=== PATIENT | male | born 1955 | race Caucasian/White ===

== ENCOUNTER 2016-11-17 11:03 | Emergency (ER) | payer SELFPAY ==
[2016-11-17] MEDS ORDERED: IPRATROPIUM/ALBUTEROL 3 ML VIAL NEB ONE ×2 (11:14→11:15)
[2016-11-17 11:28] VITALS: BP 168/87; TEMP 98.1; O2SAT 97
[2016-11-17] MEDS ORDERED: predniSONE 20 MG TAB PO ONE (11:49)
--- NOTE | 2016-11-17 11:52 | ED.PDOC ---
History of Present Illness - General Chief Complaint: Respiratory Problem Stated Complaint: shortness of breath Time Seen by Provider: 11/17/16 11:14 Source: patient Exam Limitations: no limitations - History of Present Illness Initial Comments: The patient is a 51-year-old male presenting to the emergency room secondary to a feeling of shortness of breath that has been progressive over the last couple of months. He does smoke and has smoked for a very long time. No chest pain today she was. He does have a [id number] cough. He has had several rounds of sinusitis not too long ago. He does not take any daily medications. No syncope or near syncope. The patient does have a wound to his right lower extremity from recent injury. He has some mild associated edema around it. Timing/Duration: constant, getting worse Severity: moderate Improving Factors: nothing Worsening Factors: nothing Associated Symptoms: cough, malaise, shortness of breath Allergies/Adverse Reactions: Allergies NO KNOWN ALLERGY Allergy (Verified 11/17/16 11:28) Home Medications: Ambulatory Orders Amoxicillin & Pot Clavulanate [Augmentin Tab] 875 mg PO BID #14 tab 11/17/16 Ipratropium/Albuterol Inhaler [Combivent Respimat 20-100 Mcg/Act] 2 puff INH RTQID #1 inh 11/17/16 predniSONE [Prednisone] 20 mg PO DAILY #5 tab 11/17/16 Review of Systems - Review of Systems Constitutional: States: malaise EENTM: States: no symptoms reported Respiratory: States: cough, short of breath Cardiology: States: no symptoms reported Gastrointestinal/Abdominal: States: no symptoms reported Genitourinary: States: no symptoms reported Musculoskeletal: States: no symptoms reported Skin: States: no symptoms reported Neurological: States: no symptoms reported Endocrine: States: no symptoms reported Hematologic/Lymphatic: States: no symptoms reported All other Systems: No Change from Baseline Past Medical History (General) - Patient Medical History Hx Congestive Heart Failure: No Hx Diabetes: No - Vaccination History Hx Influenza Vaccination: No Hx Pneumococcal Vaccination: No - Social History Hx Tobacco Use: Yes Family Medical History - Family History Father Family History: Unknown Living Status: Unknown Physical Exam - Physical Exam General Appearance: Alert, Comfortable, No apparent distress Eye Exam: bilateral normal Ears, Nose, Throat: hearing grossly normal Neck: full range of motion, supple Respiratory: chest non-tender, decreased breath sounds, accessory muscle use - mild, wheezing - mild scattered Cardiovascular/Chest: normal peripheral pulses, regular rate, rhythm, other - ild edema in the right lower extremity due to recent injury Peripheral Pulses: radial,right: 2+, radial,left: 2+, dorsalis pedis,right: 2+, dorsalis pedis,left: 2+ Gastrointestinal/Abdominal: soft Rectal Exam: deferred Back Exam: no CVA tenderness, no vertebral tenderness Extremity: normal range of motion, no calf tenderness, normal capillary refill Neurologic: vp site II-XII nml as tested, alert, normal mood/affect, oriented x 3 Skin Exam: normal color - with the exception as above.three-quarter inch laceration to therightinner midcalf. Comments: Vital Signs - 24 hr 11/17/16 11/17/16 11/17/16 11:20 11:23 11:25 Temperature 98.1 F Pulse Rate 92 H 96 H Pulse Rate [ 88 Right Brachial] Respiratory 18 20 20 Rate Blood Pressure 168/87 [Right Arm] O2 Sat by Pulse 96 97 Oximetry 11/17/16 11:37 Temperature Pulse Rate Pulse Rate [ Right Brachial] Respiratory 20 Rate Blood Pressure [Right Arm] O2 Sat by Pulse Oximetry Progress - Progress Progress: 11/17/16 11:56 the patient is a 61-year-old male presenting with what is likely his first COPD exacerbation. The patient also has a skin tear to his right inner calf. The patient is going to be placed on prednisone 20 mg daily for 5 days and is going to be written for a Combivent inhaler. Additionally he will be placed on Augmentin both for his pulmonary status and for the right lower extremity skin tear. He can continue triple antibiotic ointment on the skin tear. ER warnings were given for any worsening. He does need to stop smoking. He does need to acquire a primary care doctor to follow for his lung condition. Departure - Departure Clinical Impression: Acute exacerbation of COPD with asthma Disposition: Discharge to Home or Self Care Condition: Fair Departure Forms: ED Discharge - Pt. Copy, Patient Portal Self Enrollment Instructions: DI for Chronic Obstructive Pulmonary Disease Diet: regular diet Activity: increase activity as tolerated Referrals: King Rose III, MD [Primary Care Provider] - 1-2 Weeks Prescriptions: Amoxicillin & Pot Clavulanate [Augmentin Tab] 875 mg PO BID #14 tab Ipratropium/Albuterol Inhaler [Combivent Respimat 20-100 Mcg/Act] 2 puff INH RTQID #1 inh predniSONE [Prednisone] 20 mg PO DAILY #5 tab Home Medications: Ambulatory Orders Amoxicillin & Pot Clavulanate [Augmentin Tab] 875 mg PO BID #14 tab 11/17/16 Ipratropium/Albuterol Inhaler [Combivent Respimat 20-100 Mcg/Act] 2 puff INH RTQID #1 inh 11/17/16 predniSONE [Prednisone] 20 mg PO DAILY #5 tab 11/17/16 Additional Instructions: the patient is a 61-year-old male presenting with what is likely his first COPD exacerbation. The patient also has a skin tear to his right inner calf. The patient is going to be placed on prednisone 20 mg daily for 5 days and is going to be written for a Combivent inhaler. Additionally he will be placed on Augmentin both for his pulmonary status and for the right lower extremity skin tear. He can continue triple antibiotic ointment on the skin tear. ER warnings were given for any worsening. He does need to stop smoking. He does need to acquire a primary care doctor to follow for his lung condition.
--- NOTE | 2016-11-17 11:55 | RAD ---
EXAM DESCRIPTION: Chest,2 Views CLINICAL HISTORY: sob 1 month COMPARISON: None available FINDINGS: The cardiomediastinal silhouette is unremarkable. There is no airspace consolidation or pleural effusion. The bronchovascular markings are within normal limits, and the lungs volumes are at the upper limits of normal range. There are old healed bilateral rib fractures. No acute fracture or pneumothorax. IMPRESSION: Negative exam. Electronically signed by: Dariel Dimas MD 11/17/2016 11:54 AM CDT Workstation: [facility]
== END 2016-11-17 12:13 | disposition home or self-care (01) ==
LOC: ER 11:03
DX: J44.1 Chronic obstructive pulmonary disease with (acute) exacerbation (principal); F17.210 Nicotine dependence, cigarettes, uncomplicated; S71.111A Laceration without foreign body, right thigh, initial encounter; X58.XXXA Exposure to other specified factors, initial encounter; Y92.9 Unspecified place or not applicable; Z79.899 Other long term (current) drug therapy
CPT/HCPCS: 71020; 94640; J7512; J7620

== ENCOUNTER 2018-05-19 06:11 | Emergency (ER) | payer SELFPAY ==
[2018-05-19] MEDS ORDERED: LABETALOL INJ 5 MG/ML VIAL ONE (06:15)
[2018-05-19] MEDS ORDERED: LABETALOL INJ 5 MG/ML VIAL IV ONE (06:16)
--- NOTE | 2018-05-19 06:21 | ED.PDOC ---
History of Present Illness - General Source: RN notes reviewed, EMS notes reviewed Additional Information: 62 YEAR OLD BROUGHT HERE BY EMS FOR ALTERED MENTAL STATUS HE WAS FOUND ON THE FLOOR IN A TRAILER HOME UNKNOWN NORMAL TIME ONSET OF SYMPTOMS UNKNOWN HE HAS RIGHT GAZE FLACID PARALYSIS OF THE LEFT SIDE WITH FACIAL PARALYSIS OF THE LEFT SIDE HE IS HYPERTENSIVE 138/108 TACYCARDIC 132 HE IS ABLE TO ANSWER QUESTIONS - History of Present Illness Timing/Duration: unsure Severity: severe Improving Factors: nothing Worsening Factors: nothing Associated Symptoms: other - NOT RESPONDING TO VERBAL STIMULI <Elisabeth Berman - Last Filed: 05/19/18 06:28> - History of Present Illness Initial Comments: received report after initial code was performed by EMS and outgoing physician . Prior caregivers patient originally called EMS with chest pain. On their arrival he was unresponsive but with right sided gaze and L flaccid paralysis. Patient was moving around but not responding to commands. It was decided to intubate patient's VQ be taken emergently to the CAT scan for suspected CVA. On my arrival to the emergency room the nurse came out of the cardiac room and stated the patient was coding. Patient that time appeared to be in asystole with O2 sats in the 20s percent. Bagging was started as well as CPR and EMT-P in attendance looked and was unable to visualize cords and patient was ventilated again. Despite ventilation O2 sat was not recovering and I was able to pass 7.5 ETT tube at 22 at the lips at 0655 with direct laryngoscopy. Color change was seen and CO2 capnography verified placement. Breath sounds were heard bilaterally and condensation seen in the tube and tube was stabilized. O2 sat started to recover and did reach 95 %. CPR was continued and vital signs were noted to be heart rate of 122 with an of asystole O2 sat now of 82% respiration of 22 epinephrine was given and CPR was continued at next rhythm check at 657 V. fib was noted and shock was ordered and given subsequently. CPR was continued and at 0700 rhythm was rechecked V. fib was noted and shock was again given as well as an additional dose of epinephrine vital signs at that time showed heart rate of 142 respiration of 44 at 0702 rhythm check again was performed pulse was present and [place] [address] mg of Versed was ordered and given for sedation. Vital signs at that time showed a heart rate of 106 respiration of 31 and blood pressure 166/122. Amiodarone was ordered for 300 mg bolus to be followed by drip. Transfer was initiated and helicopter called. Patient remained in sinus rhythm but BP started to drop to 80's /60s and epi drip was ordered and started. Flight crew arrived and took care of patient. arrived and was updated on current status. Approximately 10 minutes after leaving flight crew called back that patient was unresponsive with no pulse and patient was brought back to the ER at 0820. Compressions were started and EPI was given. Vfib was noted and first shock was given at 0821. Co2 at this time was 30 and O2 sat 91% with tube in place. at 0824 after first rhythm check after shock asystole was noted and CPR was continued (see flow sheet). AT 0828 weak pulse was noted with no blood pressure and sodium bicarb was given and epi continued. Pulse was lost and CPR was started. was consulted but she was adamant that she wanted to continue all attempts possible. At 0838 pulse was felt and u/s did show cardiac activity. BP was 137/104 and patient was in wide complex rhythm. Blood pressure was then unable to be obtained and pulse was weak and thready. Epi d rip was increased to 2mcg/6ml. Blood pressure was still unable to be obtained and dripp was increased twice more. at 0859 patient went into Vfib and was shocked twice more and CPR was started. and son continued to desire full code. at .0905 aystole was seen while I was discussing with the probable outcome. at 0907 on my arrival additional epi was given and sono confirmed pulse felt at carotid with cardiac activity. BP no was 80/76 and HR 74. Patient was then moved via helicopter to ICU. <SLIM RICHTER - Last Filed: 05/19/18 09:57> - General Chief Complaint: Chest Pain/LA Stated Complaint: unable to give Time Seen by Provider: 05/19/18 06:17 - History of Present Illness Allergies/Adverse Reactions: Allergies NO KNOWN ALLERGY Allergy (Verified 11/17/16 11:28) Home Medications: Ambulatory Orders Amoxicillin & Pot Clavulanate [Augmentin Tab] 875 mg PO BID #14 tab 11/17/16 Ipratropium/Albuterol Inhaler [Combivent Respimat 20-100 Mcg/Act] 2 puff INH RTQID #1 inh 11/17/16 predniSONE [Prednisone] 20 mg PO DAILY #5 tab 11/17/16 Review of Systems - Review of Systems Unable to Obtain Due To: condition - HE IS NON VERBAL AT THIS TIME <CullenElisabeth - Last Filed: 05/19/18 06:28> Past Medical History (General) - Patient Medical History Hx Congestive Heart Failure: No Hx Diabetes: No - Vaccination History Hx Influenza Vaccination: No Hx Pneumococcal Vaccination: No - Social History Hx Tobacco Use: Yes <Elisabeth Berman - Last Filed: 05/19/18 06:28> Family Medical History - Family History Father Family History: Unknown Living Status: Unknown <Elisabeth Berman - Last Filed: 05/19/18 06:28> Physical Exam - Physical Exam General Appearance: Other - OBTUNDED NON VERBAL RIGHT SIDED GAZE Eye Exam: bilateral normal Ears, Nose, Throat: normal ENT inspection Neck: non-tender, supple Respiratory: lungs clear, normal breath sounds, no respiratory distress, no accessory muscle use Cardiovascular/Chest: regular rate, rhythm, no edema, no gallop, no JVD, no murmur Gastrointestinal/Abdominal: normal bowel sounds, non tender, soft, no organomegaly, no pulsatile mass Neurologic: aphasia, motor weakness, disoriented x 3, other - FLACID LEFT HEMIPARESIS Skin Exam: warm/dry <Elisabeth Berman - Last Filed: 05/19/18 06:28> Departure <Elisabeth Berman - Last Filed: 05/19/18 06:28> <SLIM RICHTER - Last Filed: 05/19/18 09:57> - Departure Clinical Impression: Acute myocardial infarction Qualifiers: Myocardial infarction type: ST elevation myocardial infarction Involved coronary artery: unspecified coronary artery Qualified Code(s): I21.3 - ST elevation (STEMI) myocardial infarction of unspecified site Disposition: Transfer to Hospital Condition: Serious Departure Forms: ED Discharge - Pt. Copy, Patient Portal Self Enrollment Instructions: DI for Chest Pain Referrals: King Rose III, MD [Primary Care Provider] - 1-2 Weeks Home Medications: Ambulatory Orders Amoxicillin & Pot Clavulanate [Augmentin Tab] 875 mg PO BID #14 tab 11/17/16 Ipratropium/Albuterol Inhaler [Combivent Respimat 20-100 Mcg/Act] 2 puff INH RTQID #1 inh 11/17/16 predniSONE [Prednisone] 20 mg PO DAILY #5 tab 11/17/16 Critical Care Note - Critical Care Note Total Time (mins): 60 <SLIM RICHTER - Last Filed: 05/19/18 09:57> Transfer to Outside Facility - Transfer Information Accepting Facility: [facility] Reason for Transfer: ICU <SLIM RICHTER - Last Filed: 05/19/18 09:57>
[2018-05-19] MEDS ORDERED: SUCCINYLCHOLINE CHLORIDE 200 MG/10 ML VIAL ONE (06:25)
[2018-05-19 06:50] VITALS: O2SAT 90
[2018-05-19] MEDS ORDERED: EPINEPHrine INJ 0.1 MG/ML 10 ML SYG IV ONE ×12 (06:55→09:07)
[2018-05-19] MEDS ORDERED: SODIUM CHLORIDE 0.9% 50ML 50 ML ONE (07:04)
[2018-05-19] MEDS ORDERED: MIDAZOLAM INJ 5 MG/5 ML VIAL ONE (07:04)
[2018-05-19] MEDS ORDERED: AMIODARONE HCL 900 MG/18 ML VIAL IVPB ONE (07:19)
[2018-05-19] MEDS ORDERED: AMIODARONE HCL 150 MG/3 ML VIAL IVPB ONE (07:20)
[2018-05-19] MEDS ORDERED: MIDAZOLAM INJ 25 MG in SODIUM CHLORIDE 0.9% 50ML 25 ML IVPB SCH (07:20)
[2018-05-19] MEDS ORDERED: SODIUM CHLORIDE 0.9% 1000ML 1,000 ML IVS PRN (07:20)
[2018-05-19] MEDS ORDERED: DEXTROSE 5% (AVIVA) 500ML 500 ML IVPB ONE (07:20)
--- NOTE | 2018-05-19 07:24 | CT ---
EXAM DESCRIPTION: Head CLINICAL HISTORY: altered mental status COMPARISON: None Available. Technique: Contiguous axial images of the brain were obtained without the administration of intravenous contrast. Coronal and sagittal reformats obtained and reviewed. This exam was performed according to our departmental dose-optimization program which includes use of Automated Exposure Control, adjustment of the mA and/or kV according to patient size and/or use of iterative reconstruction technique. Findings: No erosion into secondary to beam hardening artifact. Brain: Mild cerebral atrophy. Periventricular and deep white matter hypodensities, most commonly due to nonspecific white matter chronic microvascular ischemia.No hemorrhage. No territorial infarct. No mass effect. No herniation. Ventricles: Within normal limits for patient's age. Bones: No acute osseous abnormality. Paranasal sinuses: Unremarkable. Mastoid air cells: Unremarkable. Soft tissues: No acute abnormality. IMPRESSION: No acute intracranial abnormalities. Mild cerebral atrophy and nonspecific chronic microvascular ischemic changes. Electronically signed by: Anthony Zelaya MD 05/19/2018 7:22 AM [employer]
[2018-05-19] MEDS ORDERED: DEXTROSE 5% 100ML 100 ML IVPB ONE (07:31)
[2018-05-19] MEDS ORDERED: AMIODARONE IVPB ONE (07:35)
[2018-05-19] MEDS ORDERED: EPINEPHrine HCL MULTI-DOSE 5 MG in DEXTROSE 5% 250ML 250 ML IV SCH (07:35)
[2018-05-19] MEDS ORDERED: DEXTROSE 5% IVPB ONE (07:35)
[2018-05-19] MEDS ORDERED: DEXTROSE 5% 250ML 250 ML ONE (07:41)
[2018-05-19] MEDS ORDERED: AMIODARONE IV (MAINT) 900 MG in DEXTROSE 5% (AVIVA) 500ML 500 ML IVPB SCH (07:46)
--- NOTE | 2018-05-19 07:49 | RAD ---
EXAM: AP CHEST RADIOGRAPH CLINICAL INDICATION: Respiratory distress. Mechanical ventilation. Evaluate lines and tubes. COMPARISON: Compared to the chest radiograph performed November 17, 2016. FINDINGS: Patient has been intubated with endotracheal tube tip 6.4 cm above the elicia. Cardiac size is now enlarged. New pulmonary congestion with bibasilar septal lines and prominence of pulmonary vasculature in the upper lung zones. IMPRESSION: Evidence of pulmonary venous hypertension. Endotracheal tube tip is 6.4 cm above the elicia. Electronically signed by: Tevin Reyna MD 05/19/2018 7:47 AM [employer]OUSING [employer]
[2018-05-19] MEDS ORDERED: SODIUM BICARBONATE SYRINGE 50 MEQ/50 ML SYG IV ONE (08:32)
[2018-05-19 19:51] VITALS: BP 80/76
== END 2018-05-19 09:15 | disposition short-term general hospital (02) ==
LOC: ER 06:11
DX: I21.3 ST elevation (STEMI) myocardial infarction of unspecified site (principal); R41.82 Altered mental status, unspecified
CPT/HCPCS: 31500; 36415; 36600; 70450; 71045; 80048; 82550; 82553; 82803; 82805; 83880; 84484; 85025; 85610; 85730; 93005; 94002; 94770; A4216; J0282; J0330; J2250; J7060